=== PATIENT | female | born 1940 | race African-American/Black ===

== ENCOUNTER → 2019-06-03 | Day surgery (SDC) | payer OTHER ==
--- NOTE | 2019-06-04 13:35 | PATH ---
Cytology Non-Gynecological Report Patient Name: PHUONG IBARRA [facility]. Rec. #: [id number] /Age/Gender: 1940 (Age: 78) / F Account: [id number] Location: RADIOLOGY INTER Taken: 06/03/2019 Received: 06/03/2019 Reported: 06/04/2019 Physicians: Connie Fritz M.D. Specimen(s) Received LEFT THYROID FNA Clinical History Left lobe, 1.22 x 0.72 x 1.03 cm Final Diagnosis THYROID, LEFT, FINE NEEDLE ASPIRATION: UNSATISFACTORY FOR EVALUATION. [place] CLASS I: NON-DIAGNOSTIC. RARE FOLLICULAR CELLS AND SCANT COLLOID PRESENT. Comment: The specimen has insufficient follicular cell clusters and/or colloid; and suboptimal for complete cytopathologic evaluation according to [facility] [place] System for Reporting Thyroid FNA. If the nodule has worrisome ultrasound imaging properties, suggest repeat FNA, as warranted. Electronically Signed Didi Jaramillo M.D. Gross Description Received are eight direct smears, four of which are air-dried and Diff-Quik stained, and four of which are alcohol fixed and Pap stained.
== END | disposition home or self-care (01) ==
LOC: JRADIR 10:16
PROVIDERS: ATTEND Internal Medicine Endocrinology, Diabetes & Metabolism
PROC: 0G9G3ZX Drainage of Left Thyroid Gland Lobe, Percutaneous Approach, Diagnostic (ICD-10-PCS; principal; 2019-06-03)
DX: E04.1 Nontoxic single thyroid nodule (principal)
CPT/HCPCS: 76942; 88173